=== PATIENT | male | born 1970 ===

== ENCOUNTER 2016-10-01 12:06 | Emergency (ER) | payer BC ==
[2016-10-01 12:13] VITALS: BP 116/69
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
== END 2016-10-01 13:35 | disposition home or self-care (01) ==
LOC: UCEAST 12:06
DX: M54.5 Low back pain (principal); G89.29 Other chronic pain; F17.210 Nicotine dependence, cigarettes, uncomplicated
CPT/HCPCS: 99212; G0463